=== PATIENT | male | born 1975 | race Two or more races ===

== ENCOUNTER → 2022-12-03 | Emergency (ER) | payer OTHER ==
[~2022-12-03] VITALS: Ht 185.4 cm; Wt 83.9 kg
[~2022-12-03] MED LIST: ORASEP SPRAY30 ML MM; PHENAGIL CH TA1 EACH PO; ZYNCOF 20-400120 ML PO
== END | disposition home or self-care (01) ==
LOC: ER 00:30
DX: U07.1 COVID-19 (principal)